=== PATIENT | female | born 1995 | race Asian ===

== ENCOUNTER 2021-02-10 09:15 | Emergency (ER) | payer OTHER ==
[~2021-02-10] VITALS: Ht 149.9 cm; Wt 46.1 kg
[2021-02-10] MEDS ORDERED: ACET500P3 PO (09:57)
--- NOTE | 2021-02-10 10:32 | REP ---
INDICATION: trauma COMPARISON: None. TECHNIQUE: AP, lateral, bilateral oblique views right 2nd digit. FINDINGS: There is a nondisplaced fracture involving the 3rd digit terminal tuft/distal phalanx with overlying soft tissue swelling. Remainder of the examination is normal. IMPRESSION: Nondisplaced fracture involving the terminal tuft. <Electronically signed by Chandler Caba > 02/10/21 1024
[2021-02-10 11:38] VITALS: BP 122/82
== END 2021-02-10 11:47 | disposition home or self-care (01) ==
LOC: M ED 09:15
DX: S62.630A Displaced fracture of distal phalanx of right index finger, initial encounter for closed fracture (principal); W23.0XXA Caught, crushed, jammed, or pinched between moving objects, initial encounter; Y92.009 Unspecified place in unspecified non-institutional (private) residence as the place of occurrence of the external cause; Y93.89 Activity, other specified; Y99.8 Other external cause status

== ENCOUNTER → 2022-07-05 | Outpatient (REF) ==
[~2022-07-05] MED LIST: ACET500P3 PO
[2022-07-06 14:08] LABS: HERPES ZOSTER, VARICELLA IgM <0.91 index (0.00-0.90)
== END ==
LOC: M LAB 09:12
PROVIDERS: ATTEND Nurse Practitioner Adult Health
DX: Z02.1 Encounter for pre-employment examination (principal)

== ENCOUNTER → 2022-07-09 | Outpatient (REF) | LOC: M RAD 09:08 → M LAB 09:08 | PROVIDERS: ATTEND Nurse Practitioner Adult Health | DX: Z01.89 Encounter for other specified special examinations (principal) ==

== ENCOUNTER 2022-07-20 15:32 | Emergency (ER) | payer OTHER, SELFPAY ==
[2022-07-20 16:04] LABS: BASO # 0.1 10^3/uL (0.0-0.2); BASO % 0.8 % (0.0-1.0); EOS # 0.3 10^3/uL (0.0-0.5); EOS % 3.4 % (0.0-3.0); HEMATOCRIT 40.3 % (36.0-47.0); HEMOGLOBIN 13.1 g/dl (12.0-15.5); MEAN CORPUSCULAR HEMOGLOBIN 28.8 pg (27.0-33.0); MEAN CORPUSCULAR HGB CONC 32.5 g/dl (32.0-36.5); MEAN CORPUSCULAR VOLUME 88.6 fl (80.0-96.0); MONO # 0.5 10^3/uL (0.0-0.8); MONO % 6.2 % (2.0-8.0); NEUTROPHILS % 51.2 % (36.0-66.0); PLATELET COUNT, AUTOMATED 284 10^3/uL (150-450); RED BLOOD COUNT 4.55 10^6/uL (4.00-5.40); WHITE BLOOD COUNT 7.9 10^3/uL (4.0-10.0)
[2022-07-20] MEDS ORDERED: ISOVUE-370 76% 100ML VIAL As Ordered ONE (16:11)
[2022-07-20 18:02] VITALS: BP 121/83
== END 2022-07-20 18:13 | disposition home or self-care (01) ==
LOC: EDBD 15:32 → M ED 15:32
DX: S80.02XA Contusion of left knee, initial encounter (principal); V49.40XA Driver injured in collision with unspecified motor vehicles in traffic accident, initial encounter; F17.200 Nicotine dependence, unspecified, uncomplicated; Z79.1 Long term (current) use of non-steroidal anti-inflammatories (NSAID); Y92.410 Unspecified street and highway as the place of occurrence of the external cause; Y93.9 Activity, unspecified; Y99.9 Unspecified external cause status

== ENCOUNTER → 2023-12-07 | Outpatient (CLI) | payer OTHER ==
[2023-12-07 13:26] LABS: HEMATOCRIT 40.1 % (36.0-47.0); HEMOGLOBIN 13.5 g/dl (12.0-15.5); MEAN CORPUSCULAR HEMOGLOBIN 29.7 pg (27.0-33.0); MEAN CORPUSCULAR HGB CONC 33.7 g/dl (32.0-36.5); MEAN CORPUSCULAR VOLUME 88.1 fl (80.0-96.0); PLATELET COUNT, AUTOMATED 277 10^3/uL (150-450); RED BLOOD COUNT 4.55 10^6/uL (4.00-5.40); WHITE BLOOD COUNT 13.1 10^3/uL (4.0-10.0)
[2023-12-07 13:57] LABS: HIV 1&2 SCREEN NEGATIVE (NEGATIVE)
[2023-12-07 14:05] LABS: HEPATITIS C VIRUS ABY INDEX 0.03 INDEX (<0.8)
[2023-12-07 15:03] LABS: GC DNA AMPLIFICATION NEGATIVE (NEGATIVE)
== END ==
LOC: M PLALAB 10:26
PROVIDERS: ATTEND Advanced Practice Midwife
DX: Z34.01 Encounter for supervision of normal first pregnancy, first trimester (principal)

== ENCOUNTER → 2023-12-23 | Outpatient (CLI) | payer OTHER | LOC: M PLALAB 14:03 | PROVIDERS: ATTEND Advanced Practice Midwife | DX: Z34.80 Encounter for supervision of other normal pregnancy, unspecified trimester (principal) ==

== ENCOUNTER → 2024-01-04 | Outpatient (CLI) | payer OTHER | LOC: M PLALAB 14:25 | PROVIDERS: ATTEND Advanced Practice Midwife | DX: Z34.02 Encounter for supervision of normal first pregnancy, second trimester (principal) ==

== ENCOUNTER → 2024-02-28 | Outpatient (CLI) | payer OTHER | LOC: M WHC 07:09 | PROVIDERS: ATTEND Advanced Practice Midwife | DX: Z34.02 Encounter for supervision of normal first pregnancy, second trimester (principal) ==

== ENCOUNTER → 2024-03-27 | Outpatient (CLI) | payer OTHER ==
[2024-03-27 13:51] LABS: HEMATOCRIT 37.2 % (36.0-47.0); HEMOGLOBIN 12.5 g/dl (12.0-15.5); MEAN CORPUSCULAR HEMOGLOBIN 30.5 pg (27.0-33.0); MEAN CORPUSCULAR HGB CONC 33.6 g/dl (32.0-36.5); MEAN CORPUSCULAR VOLUME 90.7 fl (80.0-96.0); PLATELET COUNT, AUTOMATED 208 10^3/uL (150-450); WHITE BLOOD COUNT 12.6 10^3/uL (4.0-10.0)
[2024-03-27 14:15] LABS: GLUCOSE CHALLENGE TEST 1 HOUR 113 MG/DL (LESS THAN 140)
[2024-03-27 14:47] LABS: HIV 1&2 SCREEN NEGATIVE (NEGATIVE)
[2024-03-27 14:55] LABS: HEPATITIS C VIRUS ABY INDEX 0.04 INDEX (<0.8)
== END ==
LOC: M PLALAB 10:07
PROVIDERS: ATTEND Obstetrics & Gynecology
DX: Z34.02 Encounter for supervision of normal first pregnancy, second trimester (principal)

== ENCOUNTER → 2024-06-07 | Outpatient (REF) | payer OTHER | LOC: M PLALAB 11:50 | PROVIDERS: ATTEND Obstetrics & Gynecology | DX: Z34.83 Encounter for supervision of other normal pregnancy, third trimester (principal) ==

== ENCOUNTER → 2024-06-13 | Outpatient (CLI) | payer OTHER ==
[~2024-06-13] MED LIST changes: +PRENTAB9 PO
[2024-06-13 13:36] LABS: HEMATOCRIT 39.1 % (36.0-47.0); HEMOGLOBIN 13.3 g/dl (12.0-15.5); MEAN CORPUSCULAR HEMOGLOBIN 30.7 pg (27.0-33.0); MEAN CORPUSCULAR VOLUME 90.3 fl (80.0-96.0); PLATELET COUNT, AUTOMATED 223 10^3/uL (150-450); RED BLOOD COUNT 4.33 10^6/uL (4.00-5.40); WHITE BLOOD COUNT 10.8 10^3/uL (4.0-10.0)
[2024-06-13 13:55] LABS: URIC ACID 6.4 MG/DL (3.1-7.8)
[2024-06-13 13:57] LABS: LDH LACTATE DEHYDROGENASE 184 U/L (120-246)
[2024-06-13 13:58] LABS: ALT/SGPT 13 U/L (7.0-40); AST/SGOT 10 U/L (<34); BILIRUBIN,TOTAL 0.5 MG/DL (0.3-1.2); GLOMERULAR FILTRATION RATE > 60.0 (>60)
[2024-06-13 14:03] LABS: CREATININE,RANDOM URINE 226.3 MG/DL
[2024-06-13 14:06] LABS: TOTAL PROTEIN,RANDOM URINE 168.6 MG/DL (0.0-14.0)
== END ==
LOC: M PLALAB 11:09
PROVIDERS: ATTEND Obstetrics & Gynecology
DX: O16.3 Unspecified maternal hypertension, third trimester (principal)

== ENCOUNTER 2024-06-14 11:21 | Inpatient (IN) | payer OTHER ==
[2024-06-14] VITALS (18 sets, daily range): BP systolic 129–184; BP diastolic 75–116; O2SAT 97
[~2024-06-14] VITALS: Ht 149.9 cm; Wt 69.8 kg
[~2024-06-14 11:21] MED LIST changes: -PRENTAB9 PO
[2024-06-14] MEDS ORDERED: PRENTAB9 PO (11:36)
[2024-06-14] MEDS ORDERED: HOME MED LIST COMPLETE! XX SCH (11:40)
[2024-06-14] MEDS ORDERED: LIDOCAINE 1% MDV 20ML VIAL INFIL PRN (12:40)
[2024-06-14] MEDS ORDERED: OXYTOCIN DRIP 30 UNITS in IV 1 EA IV PRN (12:40)
[2024-06-14] MEDS: miSOPROStol 50MCG 1/2 TABLET SL SCH (13:00)
[2024-06-14 13:13] LABS: HEMOGLOBIN 13.4 g/dl (12.0-15.5); MEAN CORPUSCULAR HEMOGLOBIN 30.7 pg (27.0-33.0); MEAN CORPUSCULAR HGB CONC 34.4 g/dl (32.0-36.5); MEAN CORPUSCULAR VOLUME 89.4 fl (80.0-96.0); PLATELET COUNT, AUTOMATED 234 10^3/uL (150-450); RED BLOOD COUNT 4.36 10^6/uL (4.00-5.40); WHITE BLOOD COUNT 12.4 10^3/uL (4.0-10.0)
[2024-06-14 13:32] LABS: LDH LACTATE DEHYDROGENASE 252 U/L (120-246)
[2024-06-14 13:33] LABS: ALT/SGPT 13 U/L (7.0-40); AST/SGOT 15 U/L (<34); BILIRUBIN,TOTAL 0.5 MG/DL (0.3-1.2); CREATININE FOR GFR 0.52 MG/DL (0.55-1.30); GLOMERULAR FILTRATION RATE > 60.0 (>60)
[2024-06-14 14:09] LABS: HEPATITIS C VIRUS ABY INDEX 0.06 INDEX (<0.8)
[2024-06-14 14:13] LABS: URIC ACID 5.9 MG/DL (3.1-7.8)
[2024-06-14] MEDS: LABETALOL 100MG/20ML VIAL IV STA (14:54)
[2024-06-14] MEDS: miSOPROStol 50MCG 1/2 TABLET PO SCH (17:00)
[2024-06-14] MEDS: NIFEdipine 10 MG CAP PO ONE (20:15)
[2024-06-15] VITALS (71 sets, daily range): BP systolic 117–196; BP diastolic 71–135
[2024-06-15] MEDS: LR 1,000 ML IV SCH (00:50)
[2024-06-15] MEDS: OXYTOCIN DRIP 30 UNITS in IV 1 EA IV SCH (01:21)
[2024-06-15] MEDS ORDERED: ePHEDrine SULFATE 25 MG/5 ML(5MG/ML) SYRINGE IVP PRN (06:30)
[2024-06-15] MEDS ORDERED: EPIDURAL/PCA KEYS XX PRN (06:30)
[2024-06-15] MEDS ORDERED: LR 500 ML IV PRN (06:30)
[2024-06-15] MEDS ORDERED: ONDANSETRON 4MG 2ML VIAL IV PRN (06:30)
[2024-06-15] MEDS ORDERED: diphenhydrAMINE 50MG/ML VIAL IV PRN (06:30)
[2024-06-15] MEDS ORDERED: NALOXONE INJ 0.4MG/1ML VIAL IV PRN (06:30)
[2024-06-15] MEDS: FENTANYL/ROPIVACAINE/NACL BAG 100 ML EPIDURAL SCH (06:39)
[2024-06-15] MEDS: NIFEdipine 30MG XL TAB PO SCH (09:28)
[2024-06-15] MEDS: LABETALOL 100MG/20ML VIAL IV STA (13:18)
[2024-06-15] MEDS: hydrALAZINE 20MG/ML 1ML VIAL IV STA (14:59)
[2024-06-15] MEDS: ACETAMINOPHEN 500 MG TAB PO ONE (16:36)
[2024-06-15] MEDS ORDERED: TRANEXAMIC ACID 100 MG/ML 10ML VIAL As Ordered ONE (22:09)
[2024-06-15 22:11] LABS: CORD GAS ABE A -8.5; CORD GAS HCO3 A 21.3 MMOL/L; CORD GAS O2 SAT A 60.6 %; CORD GAS PCO2 A 61.1 mmHg; CORD GAS PH A 7.161 UNITS; CORD GAS PO2 A 30.5 mmHg; CORD GAS SBC A 16.9 MMOL/L; CORD GAS TCO2 A 23.2 MMOL/L
[2024-06-15 22:12] LABS: CORD GAS ABE V -6.7; CORD GAS HCO3 V 19.2 MMOL/L; CORD GAS O2 SAT V 72.3 %; CORD GAS PCO2 V 40.2 mmHg; CORD GAS PH V 7.298 UNITS; CORD GAS PO2 V 30.8 mmHg; CORD GAS SBC V 18.5 MMOL/L; CORD GAS TCO2 V 20.5 MMOL/L
[2024-06-15] MEDS ORDERED: ACETAMINOPHEN 325 MG TAB PO PRN (22:25)
[2024-06-15] MEDS ORDERED: DIBUCAINE 1% OINTMENT 30GM TOP PRN (22:25)
[2024-06-15] MEDS ORDERED: DOCUSATE SODIUM 100MG CAPSULE PO PRN (22:25)
[2024-06-15] MEDS ORDERED: RHOGAM 300MCG (1500IU) INJ IM SCH (22:25)
[2024-06-15] MEDS ORDERED: IBUPROFEN 600MG TAB PO PRN (22:25)
[2024-06-15] MEDS: MAG Sulf (L&D) 4 GM/100 ML 4 GM in IV 1 EA IV ONE (22:47)
[2024-06-15] MEDS: MAG Sulf (OBGYN) 20GM/500ML 20,000 MG in IV 1 EA IV SCH (22:47)
[2024-06-16] VITALS (24 sets, daily range): BP systolic 111–158; BP diastolic 56–108; TEMP 97.4–99; O2SAT 95–99
[2024-06-16] MEDS: TRANEXAMIC ACID INJection 1,000 MG in D5W 100 ML IV ONE (00:20)
[2024-06-16] MEDS ORDERED: MAGNESIUM SULFATE 4% INJ 20GM/500ML (40MG/ML) As Ordered ONE (06:48)
[2024-06-16] MEDS: ACETAMINOPHEN 500 MG TAB PO PRN (08:03)
[2024-06-16] MEDS: PRENATAL VITAMINS CHEWABLE TABLET PO SCH (08:48)
[2024-06-16] MEDS: LABETALOL 100MG TAB PO SCH (14:18)
[2024-06-16] MEDS: IBUPROFEN 800 MG TAB PO PRN (19:54)
[2024-06-17] VITALS (7 sets, daily range): BP systolic 132–162; BP diastolic 78–107; TEMP 97.9; O2SAT 96–99
[2024-06-17] MEDS: MEASLES,MUMPS,RUBELLA VACCINE INJ (MMR-II) SC.IMMUN ONE (09:00)
[2024-06-17] MEDS ORDERED: NIFE1TAB52 PO (11:37)
[2024-06-17] MEDS ORDERED: IBUP80TA PO (11:37)
[2024-06-17] MEDS ORDERED: LABE100T6 PO (11:37)
== END 2024-06-17 18:40 | disposition home or self-care (01) | DRG 807 ==
LOC: M LDI 11:21 → M OBS 06-16 00:35
PROVIDERS: ADMIT Specialist; ATTEND Specialist
PROC: 3E033VJ Introduction of Other Hormone into Peripheral Vein, Percutaneous Approach (ICD-10-PCS; 2024-06-14)
PROC: 3E0P7VZ Introduction of Hormone into Female Reproductive, Via Natural or Artificial Opening (ICD-10-PCS; 2024-06-14)
PROC: 10E0XZZ Delivery of Products of Conception, External Approach (ICD-10-PCS; principal; 2024-06-15)
DX: O14.14 Severe pre-eclampsia complicating childbirth (principal); Z37.0 Single live birth; Z3A.37 37 weeks gestation of pregnancy; O69.82X0 Labor and delivery complicated by other cord entanglement, without compression, not applicable or unspecified

== ENCOUNTER → 2024-10-16 | Outpatient (REF) | payer OTHER ==
[~2024-10-16] MED LIST changes: +IBUP80TA PO; +LABE100T6 PO; +NIFE1TAB52 PO; +PRENTAB9 PO
== END ==
LOC: M SFHCWAGY 16:01
PROVIDERS: ATTEND Advanced Practice Midwife
DX: Z12.4 Encounter for screening for malignant neoplasm of cervix (principal)